=== PATIENT | male | born 1955 | race Caucasian/White ===

== ENCOUNTER → 2019-10-07 | Outpatient (CLI) | payer MEDICARE ==
[~2019-10-07] MED LIST: ASPIRIN 32325 MG/TAB PO; MULTIPLE VITAMI1 CAP PO; VALTREX 50500 MG/TAB PO
== END ==
LOC: COL.RAD 09:24
DX: M16.12 Unilateral primary osteoarthritis, left hip (principal)
CPT/HCPCS: J3301; Q9967

== ENCOUNTER → 2020-02-07 | Outpatient (CLI) | payer MEDICARE | LOC: COL.RAD 08:00 | DX: M25.552 Pain in left hip (principal) | CPT/HCPCS: J3301; Q9967 ==